=== PATIENT | male | born 1955 | race Caucasian/White ===

== ENCOUNTER → 2021-02-27 12:14 | Outpatient (CLI) | payer MEDICARE, SELFPAY ==
--- NOTE | 2021-02-27 12:25 | XR_ITS ---
PROCEDURE: XR FOOT WT BEARING RT 3V CLINICAL INDICATION: Right Hallux Pain COMPARISON: No exams were available for comparison FINDINGS: No fracture or dislocation. No lytic or blastic change. There is normal mineralization. There is mild narrowing of MP joint great toe with minor spurring of the head of the 1st metatarsal. The plantar arch is normal. There are tiny calcaneal enthesophytes at the insertion of the plantar tendon and Achilles tendon. Other findings:None. IMPRESSION: Minor osteoarthritic change MP joint great toe tiny calcaneal enthesophytes as noted Dictated by: Dr. Waldo Tolbert MD 02/27/2021 13:25 Dr. Waldo Tolbert MD in [place] 02/27/2021 13:25
== END ==
PROVIDERS: PCP Family Medicine; Visit Provider Podiatrist
DX: M79.671 Pain in right foot (principal); M79.674 Pain in right toe(s)
CPT/HCPCS: 73630